=== PATIENT | female | born 1960 | race Caucasian/White ===

== ENCOUNTER → 2023-02-14 07:41 | Outpatient (CLI) | payer OTHER, SELFPAY ==
[2023-02-14 10:15] LABS: Hemoglobin A1C% w Est Avg Glu 5.6 % (4.0-6.0)
[2023-02-14 11:35] LABS: Vitamin B12 434 pg/mL (239-931)
== END ==
PROVIDERS: PCP Family Medicine; Referring Provider Family Medicine; Visit Provider Family Medicine
DX: E53.8 Deficiency of other specified B group vitamins (principal); R73.01 Impaired fasting glucose
CPT/HCPCS: 36415; 82607; 83036